=== PATIENT | male | born 1995 | race Two or more races ===

== ENCOUNTER 2020-10-31 16:09 | Emergency (ER) | payer SELFPAY ==
[~2020-10-31] VITALS: Ht 175.3 cm; Wt 108.9 kg
[2020-10-31] MEDS ORDERED: LIDOCAINE 1% HCL (LOCAL ANESTH.) INJ 20ML MDV ID ONE (18:45)
[2020-10-31] MEDS ORDERED: TETANUS-DIPTH-ACEL PERTUSSIS 0.5ML SYR Tdap IM ONE (20:30)
[2020-10-31] MEDS ORDERED: cefTRIAXone SOD 1,000 MG VL IM ONE (20:30)
[2020-10-31] MEDS ORDERED: IBUPROFEN 800 MG TAB PO ONE (21:00)
[2020-10-31 21:26] VITALS: BP 122/90
== END 2020-10-31 22:28 | disposition home or self-care (01) ==
LOC: ER 16:09
DX: S61.217A Laceration without foreign body of left little finger without damage to nail, initial encounter (principal); S62.667A Nondisplaced fracture of distal phalanx of left little finger, initial encounter for closed fracture; S62.653A Nondisplaced fracture of middle phalanx of left middle finger, initial encounter for closed fracture; X58.XXXA Exposure to other specified factors, initial encounter; Y93.89 Activity, other specified; Y92.89 Other specified places as the place of occurrence of the external cause; Y99.8 Other external cause status
CPT/HCPCS: 12002; 73140; 90471; 90715; 96372; 99284; J0696; J2001